=== PATIENT | male | born 1980 | race Two or more races ===

== ENCOUNTER 2024-01-13 08:30 | Emergency (ER) | payer SELFPAY ==
[2024-01-13] MEDS ORDERED: Promethazine 25 MG TAB ONE (09:09)
[2024-01-13] MEDS ORDERED: Ibuprofen 800 MG TAB ONE (09:10)
== END 2024-01-13 09:42 | disposition home or self-care (01) ==
LOC: MADERS 08:30
DX: K52.9 Noninfective gastroenteritis and colitis, unspecified (principal); J06.9 Acute upper respiratory infection, unspecified; F17.210 Nicotine dependence, cigarettes, uncomplicated
CPT/HCPCS: 87081; 87400; 87426; 87430; 99284; Q0169

== ENCOUNTER 2024-02-05 08:05 | Emergency (ER) | payer SELFPAY ==
[2024-02-05] MEDS ORDERED: Naproxen 500 MG TAB ONE (08:46)
== END 2024-02-05 08:51 | disposition home or self-care (01) ==
LOC: MADERS 08:05
DX: S46.012A Strain of muscle(s) and tendon(s) of the rotator cuff of left shoulder, initial encounter (principal); F17.210 Nicotine dependence, cigarettes, uncomplicated; X50.0XXA Overexertion from strenuous movement or load, initial encounter
CPT/HCPCS: 99283